=== PATIENT | female | born 1990 | race Caucasian/White ===

== ENCOUNTER 2018-07-10 20:47 | Inpatient (IN) | payer MEDICAID ==
[~2018-07-10] VITALS: Ht 162.6 cm; Wt 90.0 kg
--- NOTE | ~2018-07-10 | DS ---
PATIENT:ALESIA FISHER :86 MEDICAL RECORD: [id number] DISCHARGE SUMMARY ADMISSION DATE: 07/10/18 DISCHARGE DATE: 07/14/18 ADMISSION DIAGNOSES: 1. Obesity. 2. at 39 weeks' gestation. 3. Gastroesophageal reflux disease. DISCHARGE DIAGNOSES: 1. Obesity. 2. at 39 weeks' gestation. 3. Gastroesophageal reflux disease. PROCEDURE: Induction of labor with vaginal delivery. ATTENDING: Drake Stringer MD HISTORY OF PRESENT ILLNESS: See the H&P in the chart. SUMMARY OF HOSPITALIZATION COURSE: The patient was admitted to the hospital at 39 weeks and 5 days and an induction began. The patient went on to deliver vaginally. At the time of discharge, she has adequate pain control. The patient will be discharged home with instructions to use hgop-[id number]-[id number] medications for her pain. Contraception counseling as well as standard precautions have been reviewed. Follow up in 6 weeks. TRANSINT:[id number] Voice Confirmation ID: [id number] DOCUMENT ID: [id number] DRAKE STRINGER MD at 0800 CC: [id number] DICTATION DATE: 08/16/18 1523 AUTOMOTIVE WARRANTY ADMINISTRATOR: 08/17/18 0650 DIS IN 07/14/18 [id number] [place] [address]
--- NOTE | ~2018-07-10 | OP ---
PATIENT NAME: ALESIA FISHER MEDICAL RECORD: [id number] :86 LOCATION:[id number] ADMISSION DATE:07/10/18 SURGEON: STEPHEN STRINGER MD DATE OF OPERATION: 07/12/2018 Deliver Note PREDELIVERY DIAGNOSIS: at term. POSTDELIVERY DIAGNOSES: 1. at term. 2. Vulvar edema. PROCEDURE: Induction of labor with vaginal delivery. ATTENDING: Stephen Stringer MD ANESTHESIA: Continuous lumbar epidural. FINDINGS: Viable female infant in a transverse presentation, Apgars were 9 and 9, weight 9 pounds 4 ounces. The edematous vulva with second degree laceration. Laceration repaired with 3-0 chromic and a separate running stitch of the perineal body of 3-0 chromic. A [id number]-[id number] 2-0 chromic used to obtain hemostasis of the vaginal lacerations. The placenta was delivered spontaneous and intact. EBL 450. DISPOSITION: Mother and infant recovered in the room. Mother will receive ice packs and possible Pollard catheter if unable to void. TRANSINT:[id number] Voice Confirmation ID: [id number] DOCUMENT ID: [id number] STEPHEN STRINGER MD at 1600 CC: [id number] DICTATION DATE: 07/12/1815 WEB MOBILE DESIGNER: 07/12/18 0049 DIS IN 07/14/18 [facility] [address] [place] [address]
[2018-07-10 22:18] LABS: HEMOGLOBIN 8.6 g/dL (12-16); MCH 25.1 pg (26.0-34.0); MCHC 31.9 g/dL (31.0-37.0); MCV 78.9 fL (80.0-100.0); MEAN PLATELET VOLUME 10.8 fL (7.4-10.4); RBC 3.42 10x6/uL (4.00-5.40); RDW 14.4 % (11.5-14.5); WBC 9.4 10x3/uL (4.8-10.8)
[2018-07-10 23:08] VITALS: BP 118/59; Ht 162.6 cm; Wt 90.0 kg
[2018-07-11 00:56] LABS: APPEARANCE HAZY (CLEAR); BILIRUBIN NEGATIVE (NEGATIVE); COLOR YELLOW (YELLOW); GLUCOSE NEGATIVE (NEGATIVE); KETONE NEGATIVE (NEGATIVE); NITRITE NEGATIVE (NEGATIVE); PROTEIN 1+ mg/dL (NEGATIVE); UROBILINOGEN NORMAL (NORMAL)
[2018-07-11 00:57] LABS: BACTERIA MODERATE /hpf (NONE SEEN); EPITHELIAL CELLS 0-5 /hpf (0-5); MUCUS <1+ /lpf (NONE SEEN); RED CELLS - URINE 0-5 /hpf (0-5); WHITE CELLS - URINE 0-5 /hpf (0-5)
[2018-07-12 06:15] LABS: RAPID PLASMA REAGIN Non Reactive (Non Reactive)
[2018-07-12 07:53] VITALS: BP 108/76
[2018-07-12 14:26] VITALS: BP 102/55
[2018-07-12 21:14] VITALS: BP 110/53
[2018-07-13 07:45] LABS: BASOPHILS 0.2 % (0-2); HEMATOCRIT 22.5 % (36.0-48.0); IMMATURE GRANULOCYTES 0.9 % (0-5); LYMPHOCYTES 24.9 % (15-50); MCH 25.1 pg (26.0-34.0); MCHC 31.1 g/dL (31.0-37.0); MCV 80.6 fL (80.0-100.0); MEAN PLATELET VOLUME 10.6 fL (7.4-10.4); MONOCYTES 8.3 % (2-11); NEUTROPHILS 63.7 % (40-80); PLATELET COUNT 192 10x3/uL (130-400); RBC 2.79 10x6/uL (4.00-5.40); RDW 14.8 % (11.5-14.5); WBC 8.5 10x3/uL (4.8-10.8)
[2018-07-13 08:10] VITALS: BP 134/66
[2018-07-13 20:47] VITALS: BP 116/56
[2018-07-14 07:59] VITALS: BP 106/60
[2018-07-14 08:22] VITALS: BP 144/78
[2018-07-14] MEDS ORDERED: TYLENOL W/CODEI1 TAB PO (11:05)
== END 2018-07-14 14:35 | disposition home or self-care (01) | DRG 807 ==
LOC: D.LD 20:47
PROVIDERS: Obstetrics & Gynecology
PROC: 3E033VJ Introduction of Other Hormone into Peripheral Vein, Percutaneous Approach (ICD-10-PCS; principal; 2018-07-11)
PROC: 10E0XZZ Delivery of Products of Conception, External Approach (ICD-10-PCS; 2018-07-11)
DX: O99.214 Obesity complicating childbirth (principal); Z37.0 Single live birth; Z3A.39 39 weeks gestation of pregnancy; K21.9 Gastro-esophageal reflux disease without esophagitis